=== PATIENT | male | born 1945 | race Caucasian/White ===

== ENCOUNTER 2018-10-04 11:37 | Emergency (ER) | payer MEDICARE ==
--- NOTE | 2018-10-04 12:14 | UC ---
Skin Complaint HPI - HPI Summary HPI Summary: 72 y/o male presents to the urgent care c/o puristic papular and blister rash on B/L legs s/p cutting weeds barefoot 3 days ago. Pt reports a lot itchiness and some o the blisters have a clear drainage. Pt denies fever or pain. He applied some OTC topical cream for itchiness the first day w/o any improvement of symptoms. Pt denies eating something differently, change in detergents, SOB, difficulty breathing, chest pain, abdominal pain,N/V/D - History of Current Complaint Time Seen by Provider: 10/04/18 12:14 Stated Complaint: SKIN COMPLAINT Hx Obtained From: Patient Onset/Duration: Sudden Onset, Lasting Days - 3 days, Still Present, Worse Since - yesterday w/ itchiness Skin Exposure Onset/Duration: Days Ago - 3 days cutting weeds Timing: Constant Onset Severity: Moderate Current Severity: Moderate Pain Scale Used: 0-10 Numeric Location: Discrete - B/L legs w/ itchy rash and blisters Character: Pruritus, Redness Aggravating Factor(s): Touch Alleviating Factor(s): OTC Creams/Salves Associated Signs & Symptoms: Positive: Rash - B/L legs itchy rash, Drainage - clear blisters. Negative: Fever, Chills Related History: Possible Reaction to: Environmental Exposure - Allergy/Home Medications Allergies/Adverse Reactions: Allergies Allergy/AdvReac Type Severity Reaction Status Date / Time No Known Allergies Allergy Verified 10/04/18 12:14 Home Medications: Home Medications Aspirin EC TAB* [Ecotrin EC Low Dose 81 MG*] 81 mg PO DAILY 10/04/18 [History Confirmed 10/04/18] Lovastatin(NF) [Mevacor(NF)] 20 mg PO DAILY 10/04/18 [History Confirmed 10/04/18 ] [place]-3 Fatty Acids (Nf) [Fish Oil (NF)] 1,000 mg PO DAILY 10/04/18 [History Confirmed 10/04/18] Vitamin THERAPEUTIC TAB* [Theragran TAB*] 1 tab PO DAILY 10/04/18 [History Confirmed 10/04/18] PMH/Surg Hx/FS Hx/Imm Hx Previously Healthy: Yes Endocrine History: Dyslipidemia - Surgical History Surgical History: Yes Surgery Procedure, Year, and Place: cataract surgery- 2010 - Social History Substance Use Type: None Review of Systems All Other Systems Reviewed And Are Negative: Yes Constitutional: Positive: Negative Skin: Positive: Rash - B/L lower legs w/ itchy rash and blisters Eyes: Positive: Negative ENT: Positive: Negative Respiratory: Positive: Negative Cardiovascular: Positive: Negative Gastrointestinal: Positive: Negative Genitourinary: Positive: Negative Motor: Positive: Negative Neurovascular: Positive: Negative Musculoskeletal: Positive: Negative Neurological: Positive: Negative Psychological: Positive: Negative Is Patient Immunocompromised?: No Physical Exam - Summary Physical Exam Summary: Vital Signs Reviewed: Yes General: well appearing, well nourished male in no acute apparent pain distress , sitting comfortably on examining table Eye Exam: Normal Eyes: Positive: Conjunctiva Clear - PERRLA< EOMI, fundi grossly normal ENT: Positive: Normal ENT inspection, Hearing grossly normal, Pharynx normal, TMs normal Neck: Positive: Supple, Nontender, No Lymphadenopathy Respiratory: Positive: Chest non-tender, Lungs clear, Normal breath sounds, No respiratory distress Cardiovascular: Positive: RRR, No Murmur, Pulses Normal, Brisk Capillary Refill Abdomen Description: Positive: Nontender, No Organomegaly, Soft. Negative: CVA Tenderness (R), CVA Tenderness (L) Bowel Sounds: Positive: Present Musculoskeletal: Positive: Strength Intact, ROM Intact, No Edema Neurological: Positive: Alert, Muscle Tone Normal Psychological Exam: Normal Skin: Positive: B/L lower legs w/ scattered erythematous blisters, papules and vesicles, particularly in linear streaks w/ mild signs of excoriation, no drainage observed, non tender to palpation. pulses WNL. capillary refill brisk, sensation WNL. Triage Information Reviewed: Yes Course/Dx - Course Course Of Treatment: 72 y/o male presents to the urgent care c/o puristic papular and blister rash on B/L legs s/p cutting weeds barefoot 3 days ago. Pt reports a lot itchiness and some o the blisters have a clear drainage. Pt denies fever or pain. He applied some OTC topical cream for itchiness the first day w/o any improvement of symptoms. Pt denies eating something differently, change in detergents, SOB, difficulty breathing, chest pain, abdominal pain,N/V/D. Hx obtained. PT B/L lower legs w/ scattered erythematous blisters, papules and vesicles, particularly in linear streaks w/ mild signs of excoriation, no drainage observed, non tender to palpation. pulses WNL. capillary refill brisk, sensation WNL on examination.. Pt w/ possible contact dermatitis due to poinson hsanita. PT Rx Prednisone PO taper dose, Benadryl PO and Triamcinolone topical cream. If not improvement or worsening of symptoms to return to the clinic or f /u with PCP or [facility] Wall for further treatment.Pt's BP is elevated today advised to decrease salt in diet, monitor BP and f/u with PCP for further management. PT understood and agreed with D/C instructions - Differential Diagnoses - Skin Complaint Differential Diagnoses: Abscess, Cellulitis, Contact Dermatitis, Local Allergic Reaction, Poison [place], Poison [place], Tick Born Illness, Urticaria - Diagnoses Provider Diagnosis: Poison shanita dermatitis, Elevated BP without diagnosis of hypertension Discharge - Sign-Out/Discharge Documenting (check all that apply): Patient Departure - D/c home All imaging exams completed and their final reports reviewed: No Studies - Discharge Plan Condition: Stable Disposition: HOME Prescriptions: diPHENhydraMINE PO* [Benadryl PO 25 MG TAB*] 25 mg PO TID PRN #21 tab PRN Reason: pruritus predniSONE TAB* [Deltasone 20 MG TAB*] 20 mg PO DAILY #11 tab Triamcinolone 0.1% CREAM (NF) [Kenalog 0.1% Cream (NF)] 1 applic TOPICAL BID #1 applic Patient Education Materials: Poison Shanita (ED) Referrals: Cedrick Harp MD [Primary Care Provider] - 3 Days Roxy Wall [Medical Doctor] - If Needed Additional Instructions: 1-Please Start taking Prednisone PO taper dose starting tomorrow. first loading dose given today at the clinic. 2- TAke Benadryl PO to alleviate itchiness. Apply topical cream as directed. Avoid exposure to the sun. 3-If symptoms do not improve or worsen please f/u with your PCP or [facility] DR Wall in 3 days for further evaluation and treatment. 4- If symptoms worsen and you develop SOB or difficulty breathing please go immediately to the ER for further management. 5-Your BP is elevated today. please decrease salt in your diet, monitor BP and if it continues to be elevated please f/u with your PCP for further management. - Billing Disposition and Condition Condition: STABLE Disposition: Home - Attestation Statements Provider Attestation: Per institutional requirements, I have reviewed the chart, however, I was not consulted specifically or made aware of this patient by the midlevel provider. I did not personally evaluate, interact with , or disposition this patient.
[2018-10-04 12:28] VITALS: BP 143/81
== END 2018-10-04 12:46 | disposition home or self-care (01) ==
LOC: UCCORT 11:37
DX: L23.7 Allergic contact dermatitis due to plants, except food (principal); R03.0 Elevated blood-pressure reading, without diagnosis of hypertension; E78.5 Hyperlipidemia, unspecified
CPT/HCPCS: 99202; G0463